=== PATIENT | male | born 1990 | race American Indian/Alaskan Native ===

== ENCOUNTER 2018-05-06 15:00 | Emergency (ER) | payer OTHER ==
--- NOTE | 2018-05-06 23:23 | Emergency Department Report ---
ED Anxiety HPI - General Chief Complaint: Anxiety Stated Complaint: DIZZINESS Time Seen by Provider: 05/06/18 22:07 Source: patient Mode of arrival: Ambulatory - History of Present Illness Initial Comments: 27-year-old -[place] male with a diagnosis of depression and XRT comes in today complaining of lightheadedness at work and chest tightness and dizziness heart racing breathing fast 20 minutes after taking his new anxiety and depression medicine. Patient reports that he was recently placed on Lexapro 5 mg a day and hydralazine 25 mils grams a day and took his first dose today. Patient reports that he took his 2 medications are between each other. Patient reports that he was sleeping and he all of a sudden felt warm his chest started to tighten he started breathing hard he sat up in the bed. Patient reports that he was able to go to work but his symptoms persist so he came in to be evaluated. Patient reports that EMS reported that his blood sugar was low. Patient reports that he ate about 1005 this morning when he took his first dose of medication. Patient reports that he had 3 breakfast sandwiches. Patient is followed by psychiatrist Dr. Julia Douglas. He has another appointment with her therapist on 17 of May. Patient reports that his symptoms has stopped about 2 hours ago. He is needs here with his girlfriend. Patient currently has no known drug allergies. Was also placed on trazodone 50 mg daily at bedtime but has not taken that medication. MD Complaint: anxiety -: Gradual Time: 12:40 Symptoms: dyspnea, palpitations Place: work Previous History of Same: Yes Severity: severe Quality: constant, improving Provoking factors: medication change Improves With: rest Associated symptoms: shortness of breath, palpitations, diaphoresis - Related Data Allergies/Adverse Reactions: Allergies Allergy/AdvReac Type Severity Reaction Status Date / Time No Known Allergies Allergy Verified 05/06/18 16:12 ED Review of Systems ROS: Stated complaint: DIZZINESS Other details as noted in HPI Comment: All other systems reviewed and negative Respiratory: shortness of breath, other Cardiovascular: palpitations Skin: other (sweating at that time of anxiety) Neurological: other Psychiatric: anxiety, depression. denies: auditory hallucinations, visual hallucinations, homicidal thoughts, suicidal thoughts ED Past Medical Hx - Past Medical History Previous Medical History?: Yes Hx Psychiatric Treatment: (anxiety) Additional medical history: sciatica - Surgical History Past Surgical History?: Yes - Social History Smoking Status: Former Smoker Substance Use Type: Marijuana ED Physical Exam - General Limitations: No Limitations General appearance: alert, in no apparent distress - Head Head exam: Present: atraumatic, normocephalic - Eye Eye exam: Present: PERRL, EOMI - ENT ENT exam: Present: mucous membranes moist - Respiratory Respiratory exam: Present: normal lung sounds bilaterally. Absent: respiratory distress - Cardiovascular Cardiovascular Exam: Present: regular rate, normal rhythm. Absent: systolic murmur, diastolic murmur, rubs, gallop - Expanded Neurological Exam Expanded Neurological exam: Present: protecting the airway. Absent: ataxia, tremor Patient oriented to: Present: person, place, time Speech: Present: fluid speech Cranial nerves: EOM's Intact: Normal, Gag Reflex: Normal, Tongue Deviation: Normal, Nystagmus: Normal, Facial Sensation: Normal, Facial Palsy with Forehead Movement: Normal, Facial Palsy without Forehead Movement: Normal Cerebellar function: Finger to Nose: Normal, Heel to Polanco: Normal, Romberg: Normal Upper motor neuron: Kade Neglect: Normal, Pronator Drift: Normal Sensory exam: Upper Extremity Light Touch: Normal, Upper Extremity Pin Prick: Normal, Upper Extremity Temperature: Normal, UE 2 Point Discrimination: Normal, Lower Extremity Light Touch: Normal, Lower Extremity Pin Prick: Normal, Lower Extremity Temperature: Normal, LE 2 Point Discrimination: Normal Motor strength exam: RUE: 5, LUE: 5, RLE: 5, LLE: 5 Best Eye Response (Luís): (4) open spontaneously Best Motor Response ([place]): (6) obeys commands Best Verbal Response ([place]): (5) oriented [place] Total: 15 - Psychiatric Psychiatric exam: Present: normal affect, normal mood - Skin Skin exam: Present: warm, dry, intact, normal color. Absent: rash ED Course Vital Signs 05/06/18 05/06/18 16:09 18:30 Temperature 98.6 F 98.7 F Pulse Rate 71 56 L Respiratory 16 20 Rate Blood Pressure 148/100 156/93 O2 Sat by Pulse 100 100 Oximetry ED Medical Decision Making - Medical Decision Making Patient has been evaluated by this provider fast track. Patient's symptoms have resolved since being here in fast track. I discussed the patient to not take his hydralazine and only take his Lexapro and trazodone as prescribed by his psychiatrist. I discussed the patient to call his psychiatrist they should have a answers service and informed him of his emergency room visit and the fact that we have asked him to hold his anxiety medicine. And to see if he is able to come in sooner for medication adjustment. Patient verbalizes understanding. Critical care attestation.: If time is entered above; I have spent that time in minutes in the direct care of this critically ill patient, excluding procedure time. ED Disposition Clinical Impression: Generalized anxiety disorder with panic attacks, History of depression Disposition: DC-01 TO HOME OR SELFCARE Is pt being admited?: No Does the pt Need Aspirin: No Condition: Stable Instructions: Anxiety (ED), Depression (ED) Additional Instructions: Please continue taking the Lexapro and trazodone as prescribed by her psychiatrist. Please do not take the hydralazine and to follow up with the psychiatrist in the next 3 days. Referrals: PRIMARY CARE, [Primary Care Provider] - 3-5 Days doctorJulia [Other] - 3-5 Days Forms: Accompanied Note, Work/School Release Form(ED)
[2018-05-06 23:32] VITALS: BP 150/98
== END 2018-05-06 23:32 | disposition home or self-care (01) ==
LOC: ED 15:00
DX: F41.8 Other specified anxiety disorders (principal); F41.0 Panic disorder [episodic paroxysmal anxiety]; F32.9 Major depressive disorder, single episode, unspecified; F12.10 Cannabis abuse, uncomplicated; Z87.891 Personal history of nicotine dependence
CPT/HCPCS: 99282